=== PATIENT | male | born 1980 ===

== ENCOUNTER 2024-08-25 17:32 | Emergency (ER) | payer OTHER, SELFPAY ==
[2024-08-25] VITALS (10 sets, daily range): BP systolic 131–134; BP diastolic 79–85; PULSE 92–108; RESP 12–21; O2SAT 95–100
--- NOTE | ~2024-08-25 | CT_ITS ---
EXAMINATION: CT brain wo con DATE: 08/25/2024 20:54 INDICATION: Seizure TECHNIQUE: Computed tomography (CT) of the head was performed without intravenous contrast. The mA wa s adjusted according to patient size. Iterative reconstruction technique was employed. Exam dose: 68 1.00 mGy-cm total exam DLP. COMPARISON: None FINDINGS: No intracranial mass lesion or hemorrhage or cerebrovascular accident, midline shift or mas s effect. Normal ventricular size. Normal perez-white matter differentiation. No subdural or epidural hematoma. The orbital contents appear normal. There is minimal mucoperiosteal thickening of the left maxillary sinus. The paranasal sinuses are oth erwise unremarkable. The mastoid air cells are well-developed and aerated bilaterally. No fracture or bone destruction of the cranial vault. IMPRESSION: No intracranial abnormality Reviewed, dictated and finalized at [facility] Reviewed, dictated and finalized at [facility] FILLER IMPRESSION: No intracranial abnormality
--- NOTE | 2024-08-25 17:43 | PC.NURSE ---
Seizure pads applied to bed rails. Suction set up at bedside.
--- NOTE | 2024-08-25 17:48 | PC.NURSE ---
This RN talked to pt. Mom who states that each night for the past 2 nights pt. has zoned out but is able to talk and tell her that he is dizzy and then vomits. Mom called 911 for a seizure, even though he hasn't had a seizure in years. Mom also states that pt. takes clonipin daily for anxiety, but ran out 5 days ago so she is concerned the pt. is detoxing.
--- NOTE | 2024-08-25 18:31 | PC.NURSE ---
This RN attempted to gain peripheral IV access with no success. Labs drawn. Mckay RN to bedside to attempt peripheral Iv access.
--- NOTE | 2024-08-25 18:32 | PC.NURSE ---
Pt. states information can be shared with his mother, Felecia Monreal [phone].
[2024-08-25 19:41] LABS: Alveolar/Arterial O2 Gradient 16.1 mmHg; Base Excess ABG 3.4 mEq/l (+/-2.0); Fractional Inspired Oxygen 21 %; HCO3 ABG 28.5 mEq/l (22.0-26.0); Oxygen Content ABG 20.3 %vol (16.0-22.0); Oxygen Saturation ABG 95.9 % (95.0-100.0); Oxyhemoglobin 95.6 % THb (90.0-100.0); PCO2 ABG 44.9 mmHg (35.0-45.0); PO2 ABG 79.9 mmHg (80.0-100.0); Total Hemoglobin 15.1 g/dL (12.0-18.0)
[2024-08-25 19:42] LABS: Modified Allen's Test Pass; Site Drawn RIGHT RADIAL
[2024-08-25 19:57] LABS: Basophils Percent Auto 0.4 % (0.2-1.2); Eosinophils Percent Auto 0.6 % (0-4.4); Hematocrit 41.2 % (42.0-52.0); Immature Granulocyte Absolute 0.01 K/mm3 (0.00-0.031); Immature Granulocyte Percent A 0.1 % (0-0.5); Lymphocytes Absolute Auto 1.48 K/mm3 (0.9-3.2); Lymphocytes Percent Auto 22.1 % (18.3-44.2); Mean Corpuscular Hemoglobin 30.9 pg (26-34); Mean Corpuscular Volume 90.9 fl (80-100); Mean Platelet Volume 10.3 fl (7.4-10.4); Monocytes Absolute Auto 0.5 K/mm3 (0.1-0.6); Monocytes Percent Auto 7.3 % (2.6-8.5); Neutrophils Absolute Auto 4.6 K/mm3 (1.3-6.7); Neutrophils Percent Auto 69.5 % (45.5-73.1); Platelet Count Result 265 k/mm3 (150-375); Red Blood Count 4.53 M/mm3 (4.6-6.20); Red Cell Distribution Width 13.6 % (11.5-14.5); White Blood Count 6.7 K/mm3 (4.5-10.0)
[2024-08-25 20:06] LABS: Lactic Acid Reflex 0.9 mmol/L (0.7-2.0)
[2024-08-25 20:08] LABS: Alanine Aminotransferase 41 U/L (6-50); Albumin Level 4.5 g/dL (3.5-5.1); Alkaline Phosphatase 65 U/L (38-126); Anion Gap 6 mmol/L (4-12); Aspartate Amino Transferase 34 U/L (17-59); Bilirubin,Total 0.4 mg/dL (0.2-1.3); Blood Urea Nitrogen 7 mg/dL (9-20); Calcium 9.3 mg/dL (8.4-10.2); Carbon Dioxide 29 mmol/L (22-30); Chloride 105 mmol/L (98-107); Estimated CRCL calculation 138 ml/min; Estimated Glomerular Filt Rate > 60; Glucose 101 mg/dL (65-110); Magnesium 2.4 mg/dL (1.6-2.3); Potassium 3.6 mmol/L (3.4-5.0); Sodium 140 mmol/L (137-145)
[2024-08-25] MEDS: diazePAM INJ (*CRX) 10 MG/2 ML SYRINGE IV PUSH (20:25)
[2024-08-25 20:55] LABS: Lactic Acid Reflex 0.7 mmol/L (0.7-2.0)
[2024-08-25 20:56] LABS: Acetaminophen < 10 ug/mL (10-30); Ethanol < 10 mg/dL (<10); Lipase 41 U/L (23-300); Magnesium 2.4 mg/dL (1.6-2.3); Phosphorus 2.9 mg/dL (2.5-4.5); Salicylate < 1.0 mg/dL (2-20)
[2024-08-25 21:33] LABS: Thyroid Stimulating Hormone Reflex 0.532 uIU/mL (0.465-4.68)
[2024-08-25] MEDS: SODIUM CHLORIDE 0.9% IV 2,000 ML 999 ML IV CONT (22:14)
[2024-08-25 22:27] LABS: Add Urine Microscopic? NO; Appearance Urine Clear (Clear); Bacteria Urine None Seen /hpf; Bilirubin Urine Negative (Negative); Blood Urine Non-Hemolyzed Trace (Negative); Color Urine Yellow (Yellow); Glucose Urine UA Negative (Negative); Ketones Urine 2+ mg/dL (Negative); Leukocyte Esterase Ur Negative LEU/UL (Negative); Nitrate Urine Negative (Negative); Non Pathogenic Casts 0-2; Protein Urine Negative (Negative); Specific Grav Ur 1.013 (1.001-1.035); Squamous Epithelial Cell Urine None Seen /hpf (Few); WBC Urine 0-5 /hpf (0-3)
--- NOTE | 2024-08-25 22:41 | ED_ITS ---
HPI - General Adult General Chief complaint: Dizziness Stated complaint: dizziness Time Seen by Provider: 08/25/24 18:54 History of Present Illness HPI narrative: This is a 44-year-old male history of polysubstance use disorder presenting for dizziness. Originally he was sent in for ?seizures ?but when we spoke to the family he did not have any seizure activity he was just feeling dizzy saying things repetitively. History obtained from the mother who says that he has a history of polysubstance use disorder although she does not think he is currently using any new drugs. She does say that she has seen him taking red and blue pills in the bathroom that he claims are steroids. Patient has been seen multiple times at [facility] for this this week and has been discharged. The mother says that he ran out Klonopin 3-4 days ago On my interview the patient keeps saying that he is dizzy. He cannot provide much other useful history. Denying any physical complaints. Related Data Allergies Allergy/AdvReac Type Severity Reaction Status Date / Time No Known Allergies Allergy Verified 08/25/24 17:55 Exam Narrative: APPEARANCE: Patient appears disheveled, confused, Head: atraumatic. EYES: EOMI, no nystagmus at rest NOSE: Atraumatic NECK: Trachea midline RESPIRATORY: No increased rate of breathing CTAB CARDIOVASCULAR: Tachycardic, no peripheral ABDOMINAL: Non-distended soft nontender MUSCULOSKELETAl: No obvious deformities NEURO: Alert. Cranial nerves 2-12 grossly intact. Sensation light touch, motor function cerebellar function intact for 4 extremities. Gait exam was normal. SKIN:: Warm, dry. Normal color PSYCHIATRIC: Normal affect Course Vital Signs Vital signs: Vital Signs Pulse Rate 100 08/25/24 17:37 Respiratory Rate 21 H 08/25/24 17:37 Blood Pressure 134/83 08/25/24 17:37 Pulse Oximetry 95 08/25/24 17:37 Oxygen Delivery Room Air 08/25/24 17:37 Pulse Rate 85 08/26/24 00:28 Respiratory Rate 14 08/26/24 00:28 Blood Pressure 111/66 08/26/24 00:28 Pulse Oximetry 97 08/26/24 00:28 Oxygen Delivery Room Air 08/25/24 17:45 Medical Decision Making [facility] Narrative Medical decision making narrative: -Course: 44-year-old male polysubstance use disorder presenting with dizziness and bizarre behavior. Screening laboratory studies and imaging negative. Patient given 10 mg of IV Valium to cover benzo withdrawal although his sxs are not entirely consistent with withdrawal. Patient was monitored for 5 hours in the emergency department was workup was being completed. During that time his his dizziness has resolved. However all speaking to him he is still confused. He is not able to follow simple directions well. This was discussed with the patient and his mother given his prolonged symptoms recurrent visits to the ED will be placed in observation overnight to be evaluated by Neurology. Records requested from [place]. -DDX includes but is not limited to: Benzodiazepine withdrawal, substance use disorder, opiate overdose, benzo overdose, wernicke encephalopathy -Co-morbidities complicating care: Substance use disorder -Social determinants of health: Lives with his mother history of polysubstance use disorder -Independent interpretation of studies: Labs/imaging reviewed -Interventions:10 mg valium -Shared decision making / Disposition:admitted Vital Signs Vital Signs: Vital Signs Pulse Rate 100 08/25/24 17:37 Respiratory Rate 21 H 08/25/24 17:37 Blood Pressure 134/83 08/25/24 17:37 Pulse Oximetry 95 08/25/24 17:37 Oxygen Delivery Room Air 08/25/24 17:37 Pulse Rate 85 08/26/24 00:28 Respiratory Rate 14 08/26/24 00:28 Blood Pressure 111/66 08/26/24 00:28 Pulse Oximetry 97 08/26/24 00:28 Oxygen Delivery Room Air 08/25/24 17:45 Lab Data 08/25/24 19:49 08/25/24 19:49 Labs: Lab Results 08/25/24 08/25/24 08/25/24 Range/Units 19:49 20:28 20:28 WBC 6.7 (4.5-10.0) K/mm3 RBC 4.53 L (4.6-6.20) M/mm3 Hgb 14.0 (14.0-18.0) g/dL Hct 41.2 L (42.0-52.0) % MCV 90.9 (80-100) fl MCH 30.9 (26-34) pg MCHC 34.0 (32-36) g/dl RDW 13.6 (11.5-14.5) % Plt Count 265 (150-375) k/mm3 MPV 10.3 (7.4-10.4) fl Immature Gran % (Auto) 0.1 (0-0.5) % Neut % (Auto) 69.5 (45.5-73.1) % Lymph % (Auto) 22.1 (18.3-44.2) % Spencer % (Auto) 7.3 (2.6-8.5) % Eos % (Auto) 0.6 (0-4.4) % Baso % (Auto) 0.4 (0.2-1.2) % Lymph # (Auto) 1.48 (0.9-3.2) K/mm3 Spencer # (Auto) 0.5 (0.1-0.6) K/mm3 Eos # (Auto) 0.0 (0-0.3) K/mm3 Baso # (Auto) 0.0 (0.0-0.1) K/mm3 Abs Immat Gran (auto) 0.01 (0.00-0.031) K/mm3 Absolute Neuts (auto) 4.6 (1.3-6.7) K/mm3 Absolute Nucleated RBC 0.000 (0.0-0.012) K/mm3 Nucleated RBC % 0.0 (0.0-0.2) % Sodium 140 (137-145) mmol/L Potassium 3.6 (3.4-5.0) mmol/L Chloride 105 (98-107) mmol/L Carbon Dioxide 29 (22-30) mmol/L Anion Gap 6 (4-12) mmol/L BUN 7 L (9-20) mg/dL Creatinine 0.70 (0.7-1.3) mg/dL Estim Creat Clear Calc 138 ml/min Estimated GFR > 60 (59 - ) Glucose 101 (65-110) mg/dL Lactic Acid 0.9 0.7 (0.7-2.0) mmol/L Calcium 9.3 (8.4-10.2) mg/dL Phosphorus 2.9 (2.5-4.5) mg/dL Magnesium 2.4 H 2.4 H (1.6-2.3) mg/dL Total Bilirubin 0.4 (0.2-1.3) mg/dL AST 34 (17-59) U/L ALT 41 (6-50) U/L Alkaline Phosphatase 65 (38-126) U/L Total Protein 7.0 (6.3-8.2) g/dL Albumin 4.5 (3.5-5.1) g/dL Lipase 41 (23-300) U/L TSH (Reflex) 0.532 (0.465-4.68) uIU/mL Urine Color (Yellow) Urine Appearance (Clear) Urine pH (5.0-9.0) Ur Specific [place] (1.001-1.035) Urine Protein (Negative) mg/dL Urine Glucose (UA) (Negative) mg/dL Urine Ketones (Negative) mg/dL Ur Blood (Man) (Negative) Urine Nitrate (Negative) Urine Bilirubin (Negative) Urine Urobilinogen (<2.0) mg/dL Leukocyte Esterase Rfl (Negative) ARABELLA/UL Urine RBC (0-2) /hpf Urine WBC (0-3) /hpf Ur Squamous Epith Cells (Few) /hpf Urine Bacteria /hpf Urine Casts Salicylates Cancelled < 1.0 L Urine Opiates Screen (Negative) Urine Methadone Screen (Negative) Acetaminophen < 10 L (10-30) ug/mL Ur Barbiturates Screen (Negative) Ur Phencyclidine Scrn (Negative) Ur Amphetamine Screen (Negative) U Benzodiazepines Scrn (Negative) Urine Cocaine Screen (Negative) U Cannabinoids Screen (Negative) Ethyl Alcohol < 10 (<10) mg/dL 08/25/24 Range/Units 22:13 WBC (4.5-10.0) K/mm3 RBC (4.6-6.20) M/mm3 Hgb (14.0-18.0) g/dL Hct (42.0-52.0) % MCV (80-100) fl MCH (26-34) pg MCHC (32-36) g/dl RDW (11.5-14.5) % Plt Count (150-375) k/mm3 MPV (7.4-10.4) fl Immature Gran % (Auto) (0-0.5) % Neut % (Auto) (45.5-73.1) % Lymph % (Auto) (18.3-44.2) % Spencer % (Auto) (2.6-8.5) % Eos % (Auto) (0-4.4) % Baso % (Auto) (0.2-1.2) % Lymph # (Auto) (0.9-3.2) K/mm3 Spencer # (Auto) (0.1-0.6) K/mm3 Eos # (Auto) (0-0.3) K/mm3 Baso # (Auto) (0.0-0.1) K/mm3 Abs Immat Gran (auto) (0.00-0.031) K/mm3 Absolute Neuts (auto) (1.3-6.7) K/mm3 Absolute Nucleated RBC (0.0-0.012) K/mm3 Nucleated RBC % (0.0-0.2) % Sodium (137-145) mmol/L Potassium (3.4-5.0) mmol/L Chloride (98-107) mmol/L Carbon Dioxide (22-30) mmol/L Anion Gap (4-12) mmol/L BUN (9-20) mg/dL Creatinine (0.7-1.3) mg/dL Estim Creat Clear Calc ml/min Estimated GFR (59 - ) Glucose (65-110) mg/dL Lactic Acid (0.7-2.0) mmol/L Calcium (8.4-10.2) mg/dL Phosphorus (2.5-4.5) mg/dL Magnesium (1.6-2.3) mg/dL Total Bilirubin (0.2-1.3) mg/dL AST (17-59) U/L ALT (6-50) U/L Alkaline Phosphatase (38-126) U/L Total Protein (6.3-8.2) g/dL Albumin (3.5-5.1) g/dL Lipase (23-300) U/L TSH (Reflex) (0.465-4.68) uIU/mL Urine Color Yellow (Yellow) Urine Appearance Clear (Clear) Urine pH 7.0 (5.0-9.0) Ur Specific [place]ima 1.013 (1.001-1.035) Urine Protein Negative (Negative) mg/dL Urine Glucose (UA) Negative (Negative) mg/dL Urine Ketones 2+ H (Negative) mg/dL Ur Blood (Man) Non-hemolyzed trace (Negative) Urine Nitrate Negative (Negative) Urine Bilirubin Negative (Negative) Urine Urobilinogen 1.0 (<2.0) mg/dL Leukocyte Esterase Rfl Negative (Negative) ARABELLA/UL Urine RBC 3-5 H (0-2) /hpf Urine WBC 0-5 (0-3) /hpf Ur Squamous Epith Cells None seen (Few) /hpf Urine Bacteria None seen /hpf Urine Casts 0-2 Salicylates Urine Opiates Screen Negative (Negative) Urine Methadone Screen Negative (Negative) Acetaminophen (10-30) ug/mL Ur Barbiturates Screen Negative (Negative) Ur Phencyclidine Scrn Negative (Negative) Ur Amphetamine Screen Negative (Negative) U Benzodiazepines Scrn Positive A (Negative) Urine Cocaine Screen Negative (Negative) U Cannabinoids Screen Negative (Negative) Ethyl Alcohol (<10) mg/dL ABG Data ABG results: 08/25/24 19:33 Puncture Site Right radial ABG pH 7.420 ABG pCO2 44.9 ABG pO2 79.9 L ABG PO2/FiO2 Ratio 3.80 ABG HCO3 28.5 H ABG O2 Saturation 95.9 ABG O2 Content 20.3 ABG Base Excess 3.4 A-a Gradient 16.1 Oxyhemoglobin 95.6 Total Hemoglobin 15.1 O2 Delivery Device Not Reportable O2 Liters/Min Not Reportable FiO2 21 Discharge Plan Discharge Clinical Impression: Substance use disorder, Altered mental status Patient Disposition: Home, Self-Care Condition: Stable Instructions: Antibiotic Form, Vertigo (ED), Polysubstance Use Disorder (ED), Dizziness (ED) Additional Instructions: Please refrain from using street drugs as they seem to have a negative impact on your life. Please follow-up at chest not mental health facility. Developed confusion, visual changes weakness to any extremity, slurred speech difficulty speaking your current ED at any time. Follow-up/Referrals: UNKNOWN,DOCTOR [Primary Care Provider] -
[2024-08-25 22:45] LABS: Amphetamine Screen Urine Negative (Negative); Barbiturate Screen Urine Negative (Negative); Benzodiazepines Screen Urine Positive (Negative); Cannabinoid Screen Urine Negative (Negative); Cocaine Screen Urine Negative (Negative); Methadone Screen Urine Negative (Negative); Opiate Screen Urine Negative (Negative); Phencyclidine Screen Urine Negative (Negative)
[2024-08-26 00:28] VITALS: BP 111/66; PULSE 85; RESP 14; O2SAT 97
[2024-08-26] MEDS: IBUPROFEN IV 800 MG/200 ML 800 MG/200 ML BAG 400 MG IVPB (01:03)
--- NOTE | 2024-08-26 01:26 | ED.GENADULT ---
HPI - General Adult General Chief complaint: Dizziness Stated complaint: dizziness Time Seen by Provider: 08/25/24 18:54 Related Data Allergies Allergy/AdvReac Type Severity Reaction Status Date / Time No Known Allergies Allergy Verified 08/25/24 17:55 Course Vital Signs Vital signs: Vital Signs Pulse Rate 100 08/25/24 17:37 Respiratory Rate 21 H 08/25/24 17:37 Blood Pressure 134/83 08/25/24 17:37 Pulse Oximetry 95 08/25/24 17:37 Oxygen Delivery Room Air 08/25/24 17:37 Pulse Rate 85 08/26/24 00:28 Respiratory Rate 14 08/26/24 00:28 Blood Pressure 111/66 08/26/24 00:28 Pulse Oximetry 97 08/26/24 00:28 Oxygen Delivery Room Air 08/25/24 17:45 Medical Decision Making Vital Signs Vital Signs: Vital Signs Pulse Rate 100 08/25/24 17:37 Respiratory Rate 21 H 08/25/24 17:37 Blood Pressure 134/83 08/25/24 17:37 Pulse Oximetry 95 08/25/24 17:37 Oxygen Delivery Room Air 08/25/24 17:37 Pulse Rate 85 08/26/24 00:28 Respiratory Rate 14 08/26/24 00:28 Blood Pressure 111/66 08/26/24 00:28 Pulse Oximetry 97 08/26/24 00:28 Oxygen Delivery Room Air 08/25/24 17:45 Lab Data 08/25/24 19:49 08/25/24 19:49 Labs: Lab Results 08/25/24 08/25/24 08/25/24 Range/Units 19:49 20:28 20:28 WBC 6.7 (4.5-10.0) K/mm3 RBC 4.53 L (4.6-6.20) M/mm3 Hgb 14.0 (14.0-18.0) g/dL Hct 41.2 L (42.0-52.0) % MCV 90.9 (80-100) fl MCH 30.9 (26-34) pg MCHC 34.0 (32-36) g/dl RDW 13.6 (11.5-14.5) % Plt Count 265 (150-375) k/mm3 MPV 10.3 (7.4-10.4) fl Immature Gran % (Auto) 0.1 (0-0.5) % Neut % (Auto) 69.5 (45.5-73.1) % Lymph % (Auto) 22.1 (18.3-44.2) % [place] % (Auto) 7.3 (2.6-8.5) % Eos % (Auto) 0.6 (0-4.4) % Baso % (Auto) 0.4 (0.2-1.2) % Lymph # (Auto) 1.48 (0.9-3.2) K/mm3 [place] # (Auto) 0.5 (0.1-0.6) K/mm3 Eos # (Auto) 0.0 (0-0.3) K/mm3 Baso # (Auto) 0.0 (0.0-0.1) K/mm3 Abs Immat Gran (auto) 0.01 (0.00-0.031) K/mm3 Absolute Neuts (auto) 4.6 (1.3-6.7) K/mm3 Absolute Nucleated RBC 0.000 (0.0-0.012) K/mm3 Nucleated RBC % 0.0 (0.0-0.2) % Sodium 140 (137-145) mmol/L Potassium 3.6 (3.4-5.0) mmol/L Chloride 105 (98-107) mmol/L Carbon Dioxide 29 (22-30) mmol/L Anion Gap 6 (4-12) mmol/L BUN 7 L (9-20) mg/dL Creatinine 0.70 (0.7-1.3) mg/dL Estim Creat Clear Calc 138 ml/min Estimated GFR > 60 (59 - ) Glucose 101 (65-110) mg/dL Lactic Acid 0.9 0.7 (0.7-2.0) mmol/L Calcium 9.3 (8.4-10.2) mg/dL Phosphorus 2.9 (2.5-4.5) mg/dL Magnesium 2.4 H 2.4 H (1.6-2.3) mg/dL Total Bilirubin 0.4 (0.2-1.3) mg/dL AST 34 (17-59) U/L ALT 41 (6-50) U/L Alkaline Phosphatase 65 (38-126) U/L Total Protein 7.0 (6.3-8.2) g/dL Albumin 4.5 (3.5-5.1) g/dL Lipase 41 (23-300) U/L TSH (Reflex) 0.532 (0.465-4.68) uIU/mL Urine Color (Yellow) Urine Appearance (Clear) Urine pH (5.0-9.0) Ur Specific Isabella (1.001-1.035) Urine Protein (Negative) mg/dL Urine Glucose (UA) (Negative) mg/dL Urine Ketones (Negative) mg/dL Ur Blood (Man) (Negative) Urine Nitrate (Negative) Urine Bilirubin (Negative) Urine Urobilinogen (<2.0) mg/dL Leukocyte Esterase Rfl (Negative) ARABELLA/UL Urine RBC (0-2) /hpf Urine WBC (0-3) /hpf Ur Squamous Epith Cells (Few) /hpf Urine Bacteria /hpf Urine Casts Salicylates Cancelled < 1.0 L Urine Opiates Screen (Negative) Urine Methadone Screen (Negative) Acetaminophen < 10 L (10-30) ug/mL Ur Barbiturates Screen (Negative) Ur Phencyclidine Scrn (Negative) Ur Amphetamine Screen (Negative) U Benzodiazepines Scrn (Negative) Urine Cocaine Screen (Negative) U Cannabinoids Screen (Negative) Ethyl Alcohol < 10 (<10) mg/dL 08/25/24 Range/Units 22:13 WBC (4.5-10.0) K/mm3 RBC (4.6-6.20) M/mm3 Hgb (14.0-18.0) g/dL Hct (42.0-52.0) % MCV (80-100) fl MCH (26-34) pg MCHC (32-36) g/dl RDW (11.5-14.5) % Plt Count (150-375) k/mm3 MPV (7.4-10.4) fl Immature Gran % (Auto) (0-0.5) % Neut % (Auto) (45.5-73.1) % Lymph % (Auto) (18.3-44.2) % [place] % (Auto) (2.6-8.5) % Eos % (Auto) (0-4.4) % Baso % (Auto) (0.2-1.2) % Lymph # (Auto) (0.9-3.2) K/mm3 [place] # (Auto) (0.1-0.6) K/mm3 Eos # (Auto) (0-0.3) K/mm3 Baso # (Auto) (0.0-0.1) K/mm3 Abs Immat Gran (auto) (0.00-0.031) K/mm3 Absolute Neuts (auto) (1.3-6.7) K/mm3 Absolute Nucleated RBC (0.0-0.012) K/mm3 Nucleated RBC % (0.0-0.2) % Sodium (137-145) mmol/L Potassium (3.4-5.0) mmol/L Chloride (98-107) mmol/L Carbon Dioxide (22-30) mmol/L Anion Gap (4-12) mmol/L BUN (9-20) mg/dL Creatinine (0.7-1.3) mg/dL Estim Creat Clear Calc ml/min Estimated GFR (59 - ) Glucose (65-110) mg/dL Lactic Acid (0.7-2.0) mmol/L Calcium (8.4-10.2) mg/dL Phosphorus (2.5-4.5) mg/dL Magnesium (1.6-2.3) mg/dL Total Bilirubin (0.2-1.3) mg/dL AST (17-59) U/L ALT (6-50) U/L Alkaline Phosphatase (38-126) U/L Total Protein (6.3-8.2) g/dL Albumin (3.5-5.1) g/dL Lipase (23-300) U/L TSH (Reflex) (0.465-4.68) uIU/mL Urine Color Yellow (Yellow) Urine Appearance Clear (Clear) Urine pH 7.0 (5.0-9.0) Ur Specific Isabella 1.013 (1.001-1.035) Urine Protein Negative (Negative) mg/dL Urine Glucose (UA) Negative (Negative) mg/dL Urine Ketones 2+ H (Negative) mg/dL Ur Blood (Man) Non-hemolyzed trace (Negative) Urine Nitrate Negative (Negative) Urine Bilirubin Negative (Negative) Urine Urobilinogen 1.0 (<2.0) mg/dL Leukocyte Esterase Rfl Negative (Negative) ARABELLA/UL Urine RBC 3-5 H (0-2) /hpf Urine WBC 0-5 (0-3) /hpf Ur Squamous Epith Cells None seen (Few) /hpf Urine Bacteria None seen /hpf Urine Casts 0-2 Salicylates Urine Opiates Screen Negative (Negative) Urine Methadone Screen Negative (Negative) Acetaminophen (10-30) ug/mL Ur Barbiturates Screen Negative (Negative) Ur Phencyclidine Scrn Negative (Negative) Ur Amphetamine Screen Negative (Negative) U Benzodiazepines Scrn Positive A (Negative) Urine Cocaine Screen Negative (Negative) U Cannabinoids Screen Negative (Negative) Ethyl Alcohol (<10) mg/dL ABG Data ABG results: 08/25/24 19:33 Puncture Site Right radial ABG pH 7.420 ABG pCO2 44.9 ABG pO2 79.9 L ABG PO2/FiO2 Ratio 3.80 ABG HCO3 28.5 H ABG O2 Saturation 95.9 ABG O2 Content 20.3 ABG Base Excess 3.4 A-a Gradient 16.1 Oxyhemoglobin 95.6 Total Hemoglobin 15.1 O2 Delivery Device Not Reportable O2 Liters/Min Not Reportable FiO2 21 Discharge Plan Discharge Clinical Impression: Substance use disorder, Altered mental status Patient Disposition: Home, Self-Care Condition: Stable Instructions: Antibiotic Form, Vertigo (ED), Polysubstance Use Disorder (ED), Dizziness (ED) Additional Instructions: Please refrain from using street drugs as they seem to have a negative impact on your life. Please follow-up at chest not mental health facility. Developed confusion, visual changes weakness to any extremity, slurred speech difficulty speaking your current ED at any time. Follow-up/Referrals: UNKNOWN,DOCTOR [Primary Care Provider] -
--- NOTE | 2024-08-26 01:53 | PC.NURSE ---
Throughout pts time in ED pt was asked multiple times by this RN as well as EDP about drug use and reported he used to be a drug abuser but has not used in 5-10 years . Pts drug screen positive for Benzodiazepines but pt has a Klonopin prescription. This RN called pts mother who reported pt lived in her home and that if he was using she felt as if she would be aware. Mother reported pt is typically a normal individual and that today she became concerned after witnessing seizure like activity then pt was unable to walk or talk . Mother stated to this RN that she had no concern for him using again . At this time (around 2330) pt was a&o x4 but confused, unable to ambulate with a steady gait and unable to properly answer questions. pt reported he was dizzy and bilateral Nystagmus were noted. Pts records requested from [facility] in attempts to gain clarity on pt condition. At 0130 pt records were obtained from [facility]. Records showed pt left [facility] on 08/25/24 AMA after pts mother brought pt an unknown pill that pt admitted to snorting in his hospital bed. Pt then tested positive for Fentanyl and left facility AMA. This RN went to pt room to reassess pt. Pt now admitted to this RN that he has used Fentanyl today after this Rn questioned pt on his admission at [facility]. At this time (0200) pt was able to ambulate with a steady gait and was able to properly answer all questions. Pt left ED before this RN was able to give pt discharge paper. Pt ambulated out of ed with steady gait.
== END 2024-08-26 02:11 | disposition home or self-care (01) ==
PROVIDERS: Physician Assistant; Emergency Provider Emergency Medicine
DX: R41.82 Altered mental status, unspecified (principal); F19.90 Other psychoactive substance use, unspecified, uncomplicated
CPT/HCPCS: 36415; 36600; 70450; 80053; 80143; 80179; 80307; 81003; 82077; 82805; 83605; 83690; 83735; 84100; 84443; 85018; 85025; 96361; 96365; 96374; 99284; J1741; J3360; J7030

== ENCOUNTER 2024-12-19 09:19 | Emergency (ER) | payer OTHER, SELFPAY ==
[2024-12-19] VITALS (7 sets, daily range): BP systolic 139–147; BP diastolic 78–92; PULSE 103–117; RESP 15–25; TEMP 36.4; O2SAT 95–99
--- NOTE | 2024-12-19 09:24 | ECG_ITS ---
Test Date: 2024-12-19 09:42:16 Measurements Intervals Gibson Rate: 105 P: 30 WY: 137 QRS: 28 QRSD: 106 T: 45 QT: 346 QTc: 458 Interpretive Statements SINUS TACHYCARDIA INCOMPLETE RIGHT BUNDLE BRANCH BLOCK BORDERLINE T WAVE ABNORMALITY- ANTERIOR LEADS BASELINE ARTIFACT- I, II, III, AVR, AVL, AVF, V1-V6 BORDERLINE ECG No previous ECG available for comparison Electronically Signed On 12-19-2024 10:49:11 CDT by Galo Nguyen D.O.
--- OUTSIDE RECORDS SUMMARY | 2024-12-19 09:33 | XMS_ITS | CONTINUITY OF CARE DOCUMENT ---
Author Name lottie tafoya Address Unknown Organization [facility] Address [address] [place] [address] Phone [phone] Care Team Providers Care Sand Caster Name Role Phone Atiya Dawson MD Unavailable Atiya Dawson MD Unavailable INSURANCE PROVIDERS Payer name Policy type / Coverage type Samantha red republican ID [employer] MEDICAID (2) Medicaid [id number]
--- OUTSIDE RECORDS SUMMARY | 2024-12-19 09:33 | XMS_ITS | Clinical Summary ---
Author Organization [facility] [employer] Address [address] [place] [address] Care Team Providers Care Mop Handle Assembler Name Role Phone Unavailable Primary Care Provider Unavailabl e Source Comments [facility] [employer],non-owned Affiliates and Associated Physician Practices is amultiple site organization consisting of ambulatory clinics and hospital sitesin [place], [place], [place] and [place]. This disclosure is being madepursuant to the Care Everywhere program and may not contain all information available regarding this patient. Last updated 18.[facility] [employer] Allergies No known active allergies Medications * Be aware that medications may not be up to date on this document. Alwaysverify current medications with the patient. Medication Sig Dispensed Refills Start Date End Date Status venlafaxine XR 24hr (EFFEXOR XR) 150 MG capsule 75 mg 04/22/2019 Active PARoxetine (PAXIL) 30 MG tablet 40 mg 04/22/2019 Active lamoTRIgine (LAMICTAL) 200 MG tablet 04/22/2019 Active LORazepam (ATIVAN) 1 MG tablet 3 times daily 04/22/2019 Active QUEtiapine (SEROQUEL) 200 MG tablet 04/27/2021 Active Multiple Vitamin (MULTIVITAMIN PO) Take by mouth once daily Active Active Problems Problem Noted Date Diagnosed Date Chronic hepatitis C virus infection 05/16/2019 Family History Medical History Relation Name Comments Cancer - Colon Neg Hx Cirrhosis Neg Hx Social History Tobacco Use Types Packs/Day Years Used Date Smoking Tobacco: Some Days Cigarettes Smokeless Tobacco: Never Comments:1 pack every 2 week s Alcohol Use Standard Drinks/Week Comments Never 0 (1 standard drink = 0.6 oz pur e alcohol) AUDIT-C Answer Date Recorded Frequency of Alcohol Consumption Never 05/16/2019 Average Number of Drinks Not on file 019 Frequency of Binge Drinking Not on file 04/19 Sex and Gender Information Value Date Recorded Sex Assigned at Not on file Gender Identity Not on file Sexual Orientation Not on file Last Filed Vital Signs Vital Sign Reading Time Taken Comments Blood Pressure 121/82 05/20/2021 2:38 PM CDT Pulse 100 05/20/2021 2:38 PM CDT Temperature 36.7 C (98.1 F) 08/29/2019 1:47 PM HORTICULTURAL MANAGER Respiratory Rate 18 08/29/2019 1:47 PM HORTICULTURAL MANAGER Oxygen Saturation 97% 08/29/2019 1:47 PM HORTICULTURAL MANAGER Inhaled Oxygen Concentration - - Weight 90.8 kg (200 lb 3.2 oz) 05/20/2021 2:38 P M CDT Height 180.3 cm (5' 11 ) 05/20/2021 2:38 PM CDT Body Mass Index 27.92 05/20/2021 2:38 PM CDT Plan of Treatment Health Maintenance Due Date Last Done Comments LIPID TESTING 1982 DTAP/TDAP/TD VACCINES (1 - Tdap) 2001 HEPATITIS B VACCINE (1 of 3 - 19+ 3-dose series) 2001 PNEUMOCOCCAL VACCINE (1 of 2 - PCV) 2001 COVID-19 VACCINE (1 - 2023- season) 2024 INFLUENZA VACCINE (#1) 2024 DEPRESSION SCREENING 09/18/2024 ZOSTER VACCINE (1 of 2) 2032 HIV SCREENING Completed 06/28/2019 HEPATITIS C SCREENING Completed 05/20/2021 , 03/02/2020, 09/20/2019, Additional history exists HIB VACCINE Aged Out No longer eligi ble based on patient's age to complete this topic HPV VACCINE Aged Out No longer eligi ble based on patient's age to complete this topic MENINGOCOCCAL (Group B) VACCINE SHARED DECISION-MAKING Aged Out No longer eligible based on patient's age to complete this topic MENINGOCOCCAL GROUPS A/C/Y/W VACCINE Aged Out No longer eligible based on patient's age to complete this topic Goals Goal Patient Goal Type Associated Problems Recent Progress Patient-Stated? Author Medication Management General On track( 021 2:39 PM CDT) No [place] RN Note: Expected end date: Ongoing Interventions: Take all medications as prescribed Let your doctor know right away about any changes in your medications Make sure to request a refill of your medication at least one week prior to your last dose Procedures Procedure Name Priority Date/Time Associated Diagnosis Comments HIV-1 HIV-2 ANTIGEN/ANTIBODY Routine 06/28/2019 3:02 PM CDT Chronic hepatitis C without hepatic coma HEPATITIS C RNA QUANTITATIVE Routine 05/30/2019 1:47 PM CDT Chronic hepatitis C without hepatic coma from Last 3 Months or Most Recently Relevant to Health Maintenance Results * HIV-1 HIV-2 ANTIGEN/ANTIBODY (06/28/2019 3:02 PM CDT) [facility] HIV Antigen/Antibod y 1 & 2 Non-reacti ve Non-react prashanth 06/28/2019 4:30 PM CDT [facility] Comment: Neither HIV-1 p24 Antigen nor HIV-1/HIV-2 Antibodies are detected. Blood BLOOD SPECIMEN / Unknown Lab Venipuncture / Unknown 06/28/2019 3:02 PM CDT 06/28/2019 3:42 PM CDT Jose Bowman MD LAB - HEMATOLOGY ORD ERABLES Performing Organization Address City/State/[facility] Co de Phone Number [facility] [address] [phone] * (ABNORMAL) HEPATITIS C RNA QUANTITATIVE (05/30/2019 1:47 PM CDT) [facility] Hepatitis C Virus Quant by PCR, Blood [id number] (H) Not detected IU/mL 06/04/2019 6:11 PM CDT [facility] Hepatitis C RNA PCR, Interp Detected( A) Not Detected 06/04/2019 6:11 PM CDT [facility] Blood BLOOD SPECIMEN / Unknown Lab Venipuncture / Unknown 05/30/2019 1:47 PM CDT 05/30/2019 2:15 PM CDT Narrative [facility] - 06/04/2019 6:11 PM CDT The Hepatitis C viral (HCV) RNA analysis utilized a serum sample, real-time reverse tool rental technician PCR, and is reported as Not Detected, Detected (<12 IU/mL), Quantity (IU/mL) or >100,000,000 IU/mL. The limit of quantitation of the assay is 12 IU/mL (100% of samples with this HCV RNA level were detected). The linear range is from 12 IU/mL to 100,000,000 IU/mL. Values less than 12 IU/mL are reported as Detected (<12 IU/mL). Values greater than 100,000,000 IU/mL are reported as > 100,000,000 IU/mL. The detection/quantitation of HCV RNA in serum is based on the isolation of HCV RNA with reverse tool rental technician of genomic HCV RNA followed by real-time PCR in the presence of an unrelated RNA internal control. The internal control ensures that RNA is isolated, and that no general significant inhibitors of the RT-PCR process are present. The analysis was performed using a U.S. FDA approved test methodology ([employer] Real Time HCV). Jose Bowman MD LAB - CHEMISTRY [facility]. [address] [phone] from Last 3 Months or Most Recently Relevant to Health Maintenance
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
--- OUTSIDE RECORDS SUMMARY | 2024-12-19 09:34 | XMS_ITS | Patient Health Record ---
Author Organization [facility] Address [address] [place] [address] Care Team Providers Care Psychiatry Physician Name Role Phone Thaddeus Cervantes Primary Care Provider [phone] [facility], Adult LEANN Unavailabl e [phone] Allergies No Known Allergies Reason For Referral No Information Medications Medication SIG (Take, Route, Frequency, Duration) Notes Start Date End Date Status Doxepin HCl 10 mg TAKE 1 TO 2 CAPSULES BY MOUTH AT BEDTIME for 30 days Active clonazePAM 0.5 MG 1 tablet Orally twice a day as needed for anxiety for 15 days Medications Trip [facility] police report filed. Ok to use CAF funds. 11/27/2024 Active ARIPiprazole 10 MG 1 tablet Orally Once a day for 15 days Medications Trip [facility] police report filed. Ok to use CAF funds. 03/04/2024 Active lamoTRIgine 200 mg TAKE 1 TABLET BY MOUTH TWICE A DAY for 15 days Medications Trip [facility] police report filed. Ok to use CAF funds. Active Social History Tobacco Use: Social History Observation Description Date Details (start date - stop date) Never Smoker NA - NA Sex Assigned At : Social History Observation Description Sex Assigned At Male Dont use, Tobacco Use/Smoking Question Answer Notes Are you a nonsmoker Problems Problem Type SNOMED Code ICD Code Onset Dates Problem Status W/U Status Risk Notes Problem 37916032 Bipolar II disorder (F31.81) Active confirmed Problem 425068509 Major depressive disorder, recurrent, moderate (F33.1) Active confirmed Problem 51341670 Generalized anxiety disorder (F41.1) Active confirmed Problem 52018751 Tobacco dependence (F17.200) Active confirmed Problem 36953204 Alcohol abuse (F10.10) Active confirmed Problem 40682126 Substance abuse (F19.10) Active confirmed Vital Signs Heart Rate 98 /min 11/14/2024 Blood pressure diastolic 78 mm Hg 11/14/2024 Height 68 in 11/14/2024 Blood pressure systolic 128 mm Hg 11/14/2024 Weight 205 lbs 11/14/2024 BMI 31.17 kg/m2 11/14/2024 Encounters Encounter Location Date Provider Diagnosis [address] [address] 01/01/2024 Thaddeus Cervantes Bipolar II disorder F31.81 and Generalized anxiety disorder F41.[address] [address] 03/04/2024 Thaddeus Cervantes Bipolar II disorder F31.81 and Generalized anxiety disorder F41.[address] [address] 05/09/2024 Thaddeus Cervantes Bipolar II disorder F31.81 and Generalized anxiety disorder F41.[address] [address] 07/01/2024 Thaddeus Cervantes Bipolar II disorder F31.81 and Generalized anxiety disorder F41.[address] [address] 08/26/2024 Thaddeus Cervantes Bipolar II disorder F31.81 and Generalized anxiety disorder F41.[address] [address] 11/14/2024 Thaddeus Cervantes Bipolar II disorder F31.81 and Generalized anxiety disorder F41.[address] [address] 02/22/2024 Thaddeus Cervantes Generalized anxiety disorder F41.[address] [address] 06/26/2024 Thaddeus Cervantes Bipolar II disorder F31.81 and Generalized anxiety disorder F41.[address] [place] [address] 10/22/2024 Thaddeus Cervantes Bipolar II disorder F31.81 and Generalized anxiety disorder F41.[address] [place] [address] 11/12/2024 Thaddeus Cervantes Bipolar II disorder F31.81 and Generalized anxiety disorder F41.1 [facility] [address] [place] [address] 11/27/2024 Thaddeus Cervantes Bipolar II disorder F31.81 and Generalized anxiety disorder F41.1 Assessments Encounter Date Diagnosis (ICD Code) Assessment Notes Treatment Notes Treatment Clinical Notes Section Notes 01/01/2024 Bipolar II disorder (ICD-10 - F31.81) Client requests no changes to treatment plan. Encouraged client start therapy, states he is thinking about this. 02/22/2024 Generalized anxiety disorder (ICD-10 - F41.1) 03/04/2024 Bipolar II disorder (ICD-10 - F31.81) Client open to trial of Abilify for depression. Is wanting to wean down on Paxil as he no longer feels it is very effective. Discussed how to wean and script for 30 mg (decrease of 10 mg) sent to pharmacy. 05/09/2024 Bipolar II disorder (ICD-10 - F31.81) Client requests further tapering of Paxil to 20 mg while going up on dose of Abilify. Client given option of dose increase of Abilify to 7.5 mg or 10 mg. Client states he would like to increase to 10 mg. States he feels it is really helping and no medication has really helped him before. Doxepin discontinued as client has not been taking. 06/26/2024 Bipolar II disorder (ICD-10 - F31.81) 07/01/2024 Bipolar II disorder (ICD-10 - F31.81) Client doing well on current treatment plan. Abilfy continues to assist with depressive symptoms. Client restarted doxepin for insomnia on his own and would like refill. He would like to taper Paxil again this appt to 10 mg. No other treatment plan changes. 08/26/2024 Bipolar II disorder (ICD-10 - F31.81) Client with increased depression due to holiday season, lessened time with son, missing his father. Refusing tx plan changes. Has crisis line number, encouraged to call if needed, encouraged to start therapy. 10/22/2024 Bipolar II disorder (ICD-10 - F31.81) 11/12/2024 Bipolar II disorder (ICD-10 - F31.81) 11/14/2024 Bipolar II disorder (ICD-10 - F31.81) Client requests to wean off Paxil despite ongoing stressors. Feels no assistance from SSRI group of medications. Other medications left at current doses. Client overall has been helped significantly by aripiprazole, though he states he doesn't always recognize this. (his mood has been very labile in past off aripiprazole, more stable on it) 11/27/2024 Bipolar II disorder (ICD-10 - F31.81) 11/27/2024 Generalized anxiety disorder (ICD-10 - F41.1) 11/14/2024 Generalized anxiety disorder (ICD-10 - F41.1) Client requests to wean off Paxil despite ongoing stressors. Feels no assistance from SSRI group of medications. Other medications left at current doses. Client overall has been helped significantly by aripiprazole, though he states he doesn't always recognize this. (his mood has been very labile in past off aripiprazole, more stable on it) 11/12/2024 Generalized anxiety disorder (ICD-10 - F41.1) 10/22/2024 Generalized anxiety disorder (ICD-10 - F41.1) 08/26/2024 Generalized anxiety disorder (ICD-10 - F41.1) Client with increased depression due to holiday season, lessened time with son, missing his father. Refusing tx plan changes. Has crisis line number, encouraged to call if needed, encouraged to start therapy. 07/01/2024 Generalized anxiety disorder (ICD-10 - F41.1) Client doing well on current treatment plan. Abilfy continues to assist with depressive symptoms. Client restarted doxepin for insomnia on his own and would like refill. He would like to taper Paxil again this appt to 10 mg. No other treatment plan changes. 06/26/2024 Generalized anxiety disorder (ICD-10 - F41.1) 05/09/2024 Generalized anxiety disorder (ICD-10 - F41.1) Client requests further tapering of Paxil to 20 mg while going up on dose of Abilify. Client given option of dose increase of Abilify to 7.5 mg or 10 mg. Client states he would like to increase to 10 mg. States he feels it is really helping and no medication has really helped him before. Doxepin discontinued as client has not been taking. 03/04/2024 Generalized anxiety disorder (ICD-10 - F41.1) Client open to trial of Abilify for depression. Is wanting to wean down on Paxil as he no longer feels it is very effective. Discussed how to wean and script for 30 mg (decrease of 10 mg) sent to pharmacy. 01/01/2024 Generalized anxiety disorder (ICD-10 - F41.1) Client requests no changes to treatment plan. Encouraged client start therapy, states he is thinking about this. [place]24 [place]. Discussed [...] number to the 24-hour crisis line at [facility]. Questions addressed. Client verbalized understanding of all information and is agreeable to treatment plan. Client requests no changes to treatment plan. Encouraged client start therapy, states he is thinking about this. 03/04/2024 [place] issues [...] number to the 24-hour crisis line at [facility]. Questions addressed. Client verbalized understanding of all information and is agreeable to treatment plan. Client open to trial of Abilify for depression. Is wanting to wean down on Paxil as he no longer feels it is very effective. Discussed how to wean and script for 30 mg (decrease of 10 mg) sent to pharmacy. 05/09/2024 [place] issues [...] number to the 24-hour crisis line at [facility]. Questions addressed. Client verbalized understanding of all information and is agreeable to treatment plan. Client requests further tapering of Paxil to 20 mg while going up on dose of Abilify. Client given option of dose increase of Abilify to 7.5 mg or 10 mg. Client states he would like to increase to 10 mg. States he feels it is really helping and no medication has really helped him before. Doxepin discontinued as client has not been taking. 07/01/2024 [place] issues [...] number to the 24-hour crisis line at [facility]. Questions addressed. Client verbalized understanding of all information and is agreeable to treatment plan. Client doing well on current treatment plan. Benito continues to assist with depressive symptoms. Client restarted doxepin for insomnia on his own and would like refill. He would like to taper Paxil again this appt to 10 mg. No other treatment plan changes. 08/26/2024 [place] issues [...] number to the 24-hour crisis line at [facility]. Questions addressed. Client verbalized understanding of all information and is agreeable to treatment plan. Client with increased depression due to holiday season, lessened time with son, missing his father. Refusing tx plan changes. Has crisis line number, encouraged to call if needed, encouraged to start therapy. 11/14/2024 [place] [...] number to the 24-hour crisis line at [facility]. Questions addressed. Client verbalized understanding of all [...] more stable on it) Plan Of Treatment No Information Insurance Providers Payer Name Payer Address Payer Phone Subscriber Number Group Number Insured Name Patient Relationship to Insured Coverage Start Date Coverage End Date [facility] Attn Claims Department [address] [place] [address] [phone] [id number] Jayce Monreal Self - patient is the insured 7 [employer] Att[employer] Claims Department [address] [place] [address] [phone] [id number] Jayce Monreal Self - patient is the insured 1 [employer] Attn Claims Department [address] [place] [address] [phone] [id number] Jayce Monreal Self - patient is the insured 1 Medical (General) History Medical History History ICD Code Hepatitis C Bipolar disorder OCD Unspecified anxiety disorder Surgical History Surgery Date(Month/Year) umbilical hernia repair 1981
--- OUTSIDE RECORDS SUMMARY | 2024-12-19 09:35 | XMS_ITS ---
Author Organization [facility] Address [address] [place] [address] Care Team Providers Care Director Of Reservations Name Role Phone Thaddeus Cervantes Primary Care Provider [facility], Adult LEANN Unavailabl e [phone] REASON FOR VISIT Refills Medications Medication SIG (Take, Route, Fr equency, Duration) Notes Start Date End Date Status PARoxetine HCl 10 MG TAKE 1 TABLET BY [place] UTH EVERY MORNING for 2 days Active lamoTRIgine 200 mg TAKE 1 TABLET BY TORSTEN TH TWICE A DAY for 2 days Active clonazePAM 0.5 MG 1 tablet Orally twic e a day as needed for anxiety for 2 days 11/12/2024 Ac tive ARIPiprazole 10 MG 1 tablet Orally Once a day for 2 days 03/04/2024 Active Social History Sex Assigned At : Social History Observation Description Sex Assigned At Male Encounters Encounter Location Date Provider Diagnosis [address] [address] 11/12/2024 Thaddeus Cervantes Bipolar II disorder F31.81 and Generalized anxiety disorder F41.1 Assessments Encounter Date Diagnosis (ICD Code) Assessment Notes Treatment Notes Treatment Clinical Notes Section Notes 11/12/2024 Bipolar II disorder (ICD-10 - F31.81) 11/12/2024 Generalized anxiety disorder (ICD-10 - F41.1) Plan Of Treatment Medication Medication Name Sig Start Date Stop Date Notes PARoxetine HCl 10 MG TAKE 1 TABLET BY MO UTH EVERY MORNING for 2 days lamoTRIgine 200 mg TAKE 1 TABLET BY TORSTEN TH TWICE A DAY for 2 days clonazePAM 0.5 MG 1 tablet Orally twic e a day as needed for anxiety for 2 days 11/12/2024 ARIPiprazole 10 MG 1 tablet Orally Once a day for 2 days 0 03/04/2024 Progress Notes * DALIA JayceDOB:1980 ( 44 yo M)Acc No.[id number]:11/12/2024 Patient: Jayce COLON :1980 A ge:44 Y S ex:Male Address:[address] [place] [address], [id number] * Refills Refill lamoTRIgine Tablet, 200 mg, 4, TAKE 1 TABLET BY MOUTH TWICE A DAY, 2 days, Refills=0 Refill PARoxetine HCl Tablet, 10 MG, 2, TAKE 1 TABLET BY MOUTH EVERY MORNING, 2 days, Refills=0 Refill ARIPiprazole Tablet, 10 MG, Orally, 2 Tablet, 1 tablet, Once a day, 2 days, Refills=0 Refill clonazePAM Tablet, 0.5 MG, Orally, 4, 1 tablet, twice a day as needed for anxiety, 2 days, Refills=0 * true * Date: Generated for Maritza mcmillan/Tucker/Xin on: 0 12/19/2024 09:34 AM CDT
--- OUTSIDE RECORDS SUMMARY | 2024-12-19 09:35 | XMS_ITS | Clinical Summary ---
Author Organization [facility] Address [address] [place] [address] Phone Care Team Providers Care Rehabilitation Psychologist Name Role Phone Unavailable Primary Care Provider Unavailabl e Social History Tobacco Use Types Packs/Day Years Used Date Smoking Tobacco: Never Assessed Sex and Gender Information Value Date Recorded Sex Assigned at Not on file Legal Sex Male 5:12 PM CDT Gender Identity Not on file Sexual Orientation Not on file Plan of Treatment Not on file Insurance MEDICAID [employer]
--- OUTSIDE RECORDS SUMMARY | 2024-12-19 09:35 | XMS_ITS ---
Author Organization [facility] Address [address] [place] [address] Care Team Providers Care Accordion Repairer Name Role Phone Thaddeus Cervantes Primary Care Provider [facility], Adult LEANN Unavailabl e [phone] REASON FOR VISIT medications Medications Medication SIG (Take, Route, Frequency, Duration) Notes Start Date End Date Status clonazePAM 0.5 MG 1 tablet Orally twice a day as needed for anxiety for 15 days [facility] Ok to use CAF funds. 11/27/2024 Active ARIPiprazole 10 MG 1 tablet Orally Once a day for 15 days Medications Trip [facility] police report filed. Ok to use CAF funds. 03/04/2024 Active lamoTRIgine 200 mg TAKE 1 TABLET BY MOUTH TWICE A DAY for 15 days Medications Trip [facility] police report filed. Ok to use CAF funds. Active Social History Sex Assigned At : Social History Observation Description Sex Assigned At Male Encounters Encounter Location Date Provider Diagnosis [facility] [address] [place] [address] 11/27/2024 Thaddeus Cervantes Bipolar II disorder F31.81 and Generalized anxiety disorder F41.1 Assessments Encounter Date Diagnosis (ICD Code) Assessment Notes Treatment Notes Treatment Clinical Notes Section Notes 11/27/2024 Bipolar II disorder (ICD-10 - F31.81) 11/27/2024 Generalized anxiety disorder (ICD-10 - F41.1) Plan Of Treatment Medication Medication Name Sig Start Date Stop Date Notes clonazePAM 0.5 MG 1 tablet Orally twic e a day as needed for anxiety for 15 days 11/27/2024 Medications Trip [facility] police report filed. Ok to use CAF funds. ARIPiprazole 10 MG 1 tablet Orally Once a day for 15 days 03/04/2024 Medications Trip [facility] police report filed. Ok to use CAF funds. lamoTRIgine 200 mg TAKE 1 TABLET BY MOUTH TWICE A DAY for 15 days Medications Trip [facility] police report filed. Ok to use CAF funds. Progress Notes * Jayce GÓMEZDOB:1980 ( 44 yo M)Acc No.[id number]:11/27/2024 Patient: Jayce COLON :1980 A ge:44 Y S ex:Male Address:[address] [place] [address], [phone] * Refills Refill ARIPiprazole Tablet, 10 MG, Orally, 15 Tablet, 1 tablet, Once a day, 15 days, Refills=0 Refill lamoTRIgine Tablet, 200 mg, 30, TAKE 1 TABLET BY MOUTH TWICE A DAY, 15 days, Refills=0 Refill clonazePAM Tablet, 0.5 MG, Orally, 30, 1 tablet, twice a day as needed for anxiety, 15 days, Refills=0 * true * Date: Generated for Maritza mcmillan/Tucker/Artieitting on: 0 12/19/2024 09:34 AM CDT
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
--- OUTSIDE RECORDS SUMMARY | 2024-12-19 10:02 | XMS_ITS | CONTINUITY OF CARE DOCUMENT ---
Author Name lottie tafoya Address Unknown Organization [facility] Address [address] [place] [address] Phone [phone] Care Team Providers Care Engine Assembler Name Role Phone Atiya Dawson MD Unavailable Atiya Dawson MD Unavailable INSURANCE PROVIDERS Payer name Policy type / Coverage type Samantha red democrat ID [employer] MEDICAID (2) Medicaid [id number]
--- OUTSIDE RECORDS SUMMARY | 2024-12-19 10:04 | XMS_ITS | Clinical Summary ---
Author Organization [facility] Address [address] [place] [address] Phone Care Team Providers Care Carpenter Supervisor Wooden Ship Name Role Phone Unavailable Primary Care Provider [...]
--- OUTSIDE RECORDS SUMMARY | 2024-12-19 10:04 | XMS_ITS | Continuity of Care Document ---
Author Organization [facility] Address [address] [place] [address] Phone Care Team Providers Care Hot Baller Name Role Phone Mohsen Torrez MD Unavailable Unavailable Advance Directives Directive Yes / No Effective Date File Name No Information Encounters Encounter Description Practice Location Reason(s) For Visit Diagnoses Date Provider Providers Copied on Encounter [employer], [address], [place], [place], [id number], tel:[phone] [facility] No Information Shan Connolly. [address] [place] [address], [address], [id number], . tel:[phone] Referring Provider: Mohsen Torrez, [address] [place] [address], [id number]. tel:[phone] Family History Family Member Type Diagnosis Age At Onset No Information Payers Payer name Insurance type Covered republican ID Authoriza katie(s) KUMAR [id number] Social History Type Description Quantity Date Captured Comments Sex Male Smoking Status No Information Chief Complaint And Reason For Visit No Information Reason For Referral Reason For Referral No Information History Of Present Illness Encounter Date Complaint History Of Prese nt Illness No Information Functional Status Date Functional Assessmen t No Information Instructions Date Instruction Additional Infor mation No Information Assessments Type Assessment Date No Information Patient Care Teams Name Effective Dates (start - stop) Status Members No Information
--- OUTSIDE RECORDS SUMMARY | 2024-12-19 10:04 | XMS_ITS | Clinical Summary ---
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 This disclosure is being madepursuant to the Care Everywhere program and may not contain all information available regarding this patient. Last updated 18.[facility] Allergies No known active allergies Medications * [...] 36.7 C (98.1 F) 08/29/2019 1:47 PM [employer] SUPER[employer]OR Respiratory Rate 18 08/29/2019 1:47 PM [employer]PER[employer] Oxygen Saturation 97% 08/29/2019 1:47 PM [employer] SUPER[employer] Inhaled Oxygen Concentration - - Weight 90.8 [...] HIV-1 HIV-2 ANTIGEN/ANTIBODY (06/28/2019 3:02 PM CDT) [facility] HIV Antigen/Antibod y 1 & 2 Non-reacti ve Non-react prashanth 06/28/2019 4:30 PM CDT [facility] Comment: Neither HIV-1 p24 Antigen nor HIV-1/HIV-2 Antibodies are detected. Blood BLOOD SPECIMEN / Unknown Lab Venipuncture / Unknown 06/28/2019 3:02 PM CDT 06/28/2019 3:42 PM CDT Jose Bowman MD LAB - HEMATOLOGY ORD ERABLES Performing Organization Address City/State/[facility] Co de Phone Number [facility] [address] [phone] * (ABNORMAL) HEPATITIS C RNA QUANTITATIVE (05/30/2019 1:47 PM CDT) [facility] Hepatitis C Virus Quant by PCR, Blood 6,063,737 (H) Not detected IU/mL 06/04/2019 6:11 PM CDT [facility] Hepatitis C RNA PCR, Interp Detected( A) Not Detected 06/04/2019 6:11 PM CDT [facility] Blood BLOOD SPECIMEN / Unknown Lab Venipuncture / Unknown 05/30/2019 1:47 PM CDT 05/30/2019 2:15 PM CDT Narrative [facility] - 06/04/2019 6:11 PM CDT The Hepatitis C viral (HCV) RNA analysis utilized a serum sample, real-time reverse social insurance specialist PCR, and is reported as Not Detected, [...] the isolation of HCV RNA with reverse social insurance specialist of genomic HCV RNA followed by real-time PCR in the presence of an unrelated RNA internal control. The internal control ensures that RNA is isolated, and that no general significant inhibitors of the RT-PCR process are present. The analysis was performed using a [place] FDA approved test methodology ([employer] Real Time HCV). Jose Bowman MD LAB - CHEMISTRY [facility]. [address] [phone] from Last 3 Months or Most Recently Relevant to Health Maintenance
[2024-12-19] MEDS: SODIUM CHLORIDE 0.9% IV 1,000 ML 999 ML IV CONT (10:13)
[2024-12-19] MEDS: ONDANSETRON INJ 4 MG/2 ML VIAL IV PUSH (10:13)
[2024-12-19] MEDS: clonazePAM (*CRX) 0.5 MG TABLET 1 MG PO (10:14)
[2024-12-19 10:22] LABS: Basophils Percent Auto 0.2 % (0.2-1.2); Eosinophils Percent Auto 0.1 % (0-4.4); Hematocrit 46.9 % (42.0-52.0); Hemoglobin 15.1 g/dL (14.0-18.0); Immature Granulocyte Absolute 0.07 K/mm3 (0.00-0.031); Immature Granulocyte Percent A 0.4 % (0-0.5); Lymphocytes Absolute Auto 1.05 K/mm3 (0.9-3.2); Lymphocytes Percent Auto 6.4 % (18.3-44.2); Mean Corpuscular HGB Conc 32.2 g/dl (32-36); Mean Corpuscular Hemoglobin 27.6 pg (26-34); Mean Corpuscular Volume 85.6 fl (80-100); Mean Platelet Volume 9.7 fl (7.4-10.4); Monocytes Absolute Auto 0.7 K/mm3 (0.1-0.6); Monocytes Percent Auto 4.4 % (2.6-8.5); Neutrophils Absolute Auto 14.6 K/mm3 (1.3-6.7); Neutrophils Percent Auto 88.5 % (45.5-73.1); Platelet Count Result 364 k/mm3 (150-375); Red Blood Count 5.48 M/mm3 (4.6-6.20); White Blood Count 16.5 K/mm3 (4.5-10.0)
[2024-12-19 10:34] LABS: Alanine Aminotransferase 131 U/L (6-50); Albumin Level 4.8 g/dL (3.5-5.1); Alkaline Phosphatase 124 U/L (38-126); Anion Gap 10 mmol/L (4-12); Aspartate Amino Transferase 33 U/L (17-59); Bilirubin,Total 0.6 mg/dL (0.2-1.3); Blood Urea Nitrogen 11 mg/dL (9-20); Calcium 9.3 mg/dL (8.4-10.2); Carbon Dioxide 27 mmol/L (22-30); Chloride 102 mmol/L (98-107); Estimated CRCL calculation 89 ml/min; Estimated Glomerular Filt Rate > 60; Glucose 146 mg/dL (65-110); Lactic Acid Reflex 1.7 mmol/L (0.7-2.0); Potassium 3.8 mmol/L (3.4-5.0); Sodium 139 mmol/L (137-145)
[2024-12-19 11:34] LABS: Add Urine Microscopic? YES; Appearance Urine Cloudy (Clear); Bacteria Urine None Seen /hpf; Bilirubin Urine Negative (Negative); Blood Urine Negative (Negative); Color Urine Dark Yellow (Yellow); Glucose Urine UA 1+ mg/dL (Negative); Ketones Urine 1+ mg/dL (Negative); Leukocyte Esterase Ur Negative LEU/UL (Negative); Nitrate Urine Negative (Negative); Protein Urine 1+ mg/dL (Negative); RBC Urine 0-2 /hpf (0-2); Specific Grav Ur 1.025 (1.001-1.035); Squamous Epithelial Cell Urine Occasional /hpf (Few); Urobilinogen Urine 0.2 mg/dL (<2.0); WBC Urine 0-5 /hpf (0-3)
[2024-12-19 11:46] LABS: Amphetamine Screen Urine Negative (Negative); Barbiturate Screen Urine Negative (Negative); Benzodiazepines Screen Urine Negative (Negative); Cannabinoid Screen Urine Positive (Negative); Cocaine Screen Urine Negative (Negative); Methadone Screen Urine Negative (Negative); Opiate Screen Urine Negative (Negative); Phencyclidine Screen Urine Negative (Negative)
--- NOTE | 2024-12-19 12:40 | PC.NURSE ---
ambulated in room, reports this is way better than I was.
== END 2024-12-19 12:40 | disposition home or self-care (01) ==
PROVIDERS: Emergency Provider Emergency Medicine
DX: F19.239 Other psychoactive substance dependence with withdrawal, unspecified (principal); Z87.891 Personal history of nicotine dependence
CPT/HCPCS: 36415; 80053; 80307; 81001; 83605; 85025; 93005; 96361; 96374; 99284; A9270; J2405; J7030